=== PATIENT | female | born 1940 ===

== ENCOUNTER 2020-05-02 10:26 | Inpatient (IN) ==
[2020-05-02] MEDS ORDERED: NS 0.9% 500 ml BAG 500 ML IV ONE (10:46)
[2020-05-02] MEDS ORDERED: Diltiazem IV push/loading dose 5 MG/ML 5 ML vial (25 mg) IV SLOW PU ONE ×2 (10:46→12:12)
[2020-05-02 10:58] LABS: ABS Eosinophils 0.1 10^3/ul (0-0.6); ABS Lymphocytes 1.2 10^3/ul (1.0-4.8); ABS Monocytes 0.6 10^3/ul (0-0.8); ABS Neutrophils 5.7 10^3/ul (1.5-7.7); Eosinophil % 1.3 %; Hematocrit 34 % (35-47); Hemoglobin 11.3 g/dL (12.0-16.0); Lymphocyte % 15.4 %; Mean Corpuscular HGB Conc 33 g/dL (31-36); Mean Corpuscular Hemoglobin 29 pg (27-31); Mean Corpuscular Volume 86 fL (80-97); Mean Platelet Volume 8.1 fL (7.4-10.4); Platelet Count 234 10^3/uL (150-450); Red Blood Count 3.96 10^6 /uL (3.70-4.87); Red Cell Distribution Width 14 % (10-15); White Blood Count 7.7 10^3/uL (3.5-10.8)
[2020-05-02 11:18] LABS: Albumin 3.8 g/dL (3.2-5.2); Albumin/Globulin Ratio 1.4 (1-3); BUN/Creatinine Ratio 15.2 (8-20); Calcium 8.9 mg/dL (8.6-10.3); EGFR African American 84.7 (>60); Globulin 2.8 g/dL (2-4); Potassium 3.9 mmol/L (3.5-5.0); Total Bilirubin 0.5 mg/dL (0.2-1.0); Total Protein 6.6 g/dL (6.4-8.9); Troponin I 0.01 ng/mL (<0.03)
[2020-05-02 11:58] LABS: TSH Ultra Thyroid Stim Horm 4.6 mcIU/mL (0.34-5.60)
[2020-05-02] MEDS ORDERED: Iohexol 350 (CONTRAST) 500 ML MDV IV ONE (12:02)
[2020-05-02] MEDS ORDERED: Diltiazem (ADVAN VIAL) 100 MG/100 ML ADDV.BAG IV SCH ×2 (13:00→16:00)
[2020-05-02] MEDS ORDERED: Furosemide 20 mg/2 ml IV VIAL IV ONE (13:56)
[2020-05-02 15:03] LABS: Magnesium 1.9 mg/dL (1.9-2.7)
[2020-05-02] MEDS: Diltiazem (ADVAN VIAL) 100 MG/100 ML ADDV.BAG IV SCH (17:59)
[2020-05-02] MEDS ORDERED: Enoxaparin 40 MG/0.4 ML SYR SUBCUT SCH (21:00)
[2020-05-03] MEDS: Diltiazem (ADVAN VIAL) 100 MG/100 ML ADDV.BAG IV SCH (00:27)
[2020-05-03 08:19] LABS: Albumin 3.6 g/dL (3.2-5.2); Albumin/Globulin Ratio 1.3 (1-3); BUN/Creatinine Ratio 9.5 (8-20); Calcium 8.8 mg/dL (8.6-10.3); EGFR Non-African American 90.9 (>60); Globulin 2.8 g/dL (2-4); Total Bilirubin 0.5 mg/dL (0.2-1.0); Total Protein 6.4 g/dL (6.4-8.9)
[2020-05-03] MEDS ORDERED: Furosemide 40 mg/4 ml IV VIAL IV SLOW PU ONE (08:45)
[2020-05-03] MEDS: DULoxetine DR 20 mg CAP PO SCH (09:22)
[2020-05-03] MEDS: Aspirin EC 81 mg TAB.EC (enteric coated) PO SCH (09:22)
[2020-05-03] MEDS: Potassium Chlor 20 meq TAB.ER PO SCH ×2 (17:42→20:15)
[2020-05-04] MEDS: Potassium Chlor 20 meq TAB.ER PO SCH (02:06)
[2020-05-04 07:11] LABS: BUN/Creatinine Ratio 12.9 (8-20); Calcium 8.2 mg/dL (8.6-10.3); EGFR African American 97.4 (>60); EGFR Non-African American 80.5 (>60); Magnesium 1.5 mg/dL (1.9-2.7)
[2020-05-04] MEDS: Aspirin EC 81 mg TAB.EC (enteric coated) PO SCH (09:15)
[2020-05-04] MEDS: DULoxetine DR 20 mg CAP PO SCH ×2 (09:15→09:19)
[2020-05-04] MEDS ORDERED: Magnesium Sulfate IV 3 GM in NS 0.9% 100 ml BAG 100 ML IVPB ONE (09:34)
[2020-05-04 12:10] VITALS: BP 107/54
== END 2020-05-04 13:58 | disposition home or self-care (01) | DRG 309 ==
LOC: ED 10:26 → MEDTELE 10:26 → OBSVTOIN 15:56
PROVIDERS: ADMIT Hospitalist; ATTEND Student in an Organized Health Care Education/Training Program